=== PATIENT | female | born 1960 | race Hispanic/Latino ===

== ENCOUNTER 2018-04-29 09:10 | Outpatient (CLI) | payer MEDICARE, MEDICAID | END 2018-04-29 09:11 | disposition home or self-care (01) | LOC: BICULT 09:10 | PROVIDERS: ATTEND Internal Medicine Infectious Disease | DX: K76.89 Other specified diseases of liver (principal); Z90.49 Acquired absence of other specified parts of digestive tract | CPT/HCPCS: 76705 ==

== ENCOUNTER 2018-05-11 13:31 | Outpatient (CLI) | payer MEDICARE, MEDICAID | END 2018-05-11 13:32 | disposition home or self-care (01) | LOC: BICMAMMO 13:31 | PROVIDERS: ATTEND Internal Medicine | DX: Z12.31 Encounter for screening mammogram for malignant neoplasm of breast (principal) | CPT/HCPCS: 77063; 77067 ==

== ENCOUNTER 2018-12-14 07:11 | Outpatient (CLI) | payer MEDICARE, MEDICAID ==
--- NOTE | 2018-12-14 09:55 | CT ---
CT CHEST NONCONTRAST: HISTORY: The patient has a 46-year history of smoking. COMPARISON: Contrast enhanced CT chest from 03/13/2018. TECHNIQUE: Low dose CT scan. FINDINGS: There are some mild diffuse reticulonodular densities throughout both upper lobes, relatively less in the right middle and lower lobes. No distinct pulmonary parenchymal lesions seen otherwise. No kayleigh dence of masses or significant areas of scarring seen. No evidence of lymphadenopathy seen. No significant emphysematous changes seen. Extensive coronary artery calcifications seen. IMPRESSION: Lung-RADS category 1-Continue with annual screening low-dose CT in months. POS: [facility]
== END 2018-12-14 07:12 | disposition home or self-care (01) ==
LOC: CT 07:11
PROVIDERS: ATTEND Internal Medicine
DX: F17.210 Nicotine dependence, cigarettes, uncomplicated (principal)
CPT/HCPCS: G0297

== ENCOUNTER 2019-05-17 13:59 | Outpatient (CLI) | payer MEDICARE, MEDICAID ==
--- NOTE | 2019-05-17 14:40 | BD ---
DEXA BONE DENSITOMETRY: (Dual energy x-ray absorptiometry) DATE: 05/17/2019 HISTORY: 59-year old female for age-related, post-menopausal, osteoporosis screening. weight: 167 lbs height: 63 in. age of menopause: 45 COMPARISON: None available. FINDINGS: The bone mineral density (BMD) is given in grams per square centimeter (g/cm2): LUMBAR SPINE: BMD (g/cm^2) T score Z score L1: 0.957 -0.3 0.9 L2: 1.212 1.7 3.0 L3: 1.291 1.9 3.3 L4: 1.281 2.0 3.4 Total: 1.189 1.3 2.7 HIP: BMD (g/cm^2) T score Z score Femoral neck: 0.677 -1.5 -0.4 Total: 0.858 -0.7 0.1 FRAX WHO fracture risk assessment tool: 10 year fracture risk* Major osteoporotic fracture: 4.2 % Hip fracture: 0.3 % Reported risk factors: US (), neck BMD = 0.677 (g/cm^2), BMI = 29.6. *Fracture probability is calculated for an untreated patient. Fracture probability may be lower if th e patient has received treatment. IMPRESSION: 1.) The mean bone mineral density of the lumbar spine is normal. Fracture risk is not increased. 2) The bone mineral density of the femoral neck is osteopenic. Fracture risk is increased.
--- NOTE | 2019-05-17 15:10 | MMO ---
Bilateral MAMMO Bilat Screen DDI+CATIA. CLINICAL HISTORY: Patient is 59 years old and is seen for screening. The patient has no family history of breast cancer. The patient has no personal history of cancer. VIEWS: The views performed were: bilateral craniocaudal with tomosynthesis and bilateral mediolateral oblique with tomosynthesis. FILMS COMPARED: The present examination has been compared to prior imaging studies performed at [facility] on 04/05/2015, 04/10/2016, 04/13/2017 and 05/11/2018. MAMMOGRAM FINDINGS: There are scattered fibroglandular densities. Finding 1: There are stable benign appearing calcifications seen in both breasts. Finding 2: There are several stable focal asymmetries seen in both breasts. There are no suspicious masses, suspicious calcifications, or new areas of architectural distortion. IMPRESSION: THERE IS NO MAMMOGRAPHIC EVIDENCE OF MALIGNANCY. A ROUTINE FOLLOW-UP MAMMOGRAM IN 1 YEAR IS RECOMMENDED. THE RESULTS OF THIS EXAM WERE SENT TO THE PATIENT. ACR BI-RADS Category 2 - Benign finding MAMMOGRAPHY NOTE: 1. A negative mammogram report should not delay a biopsy if a dominant of clinically suspicious mass is present. 2. Approximately 10% to 15% of breast cancers are not detected by mammography. 3. Adenosis and dense breasts may obscure an underlying neoplasm.
== END 2019-05-17 14:00 | disposition home or self-care (01) ==
LOC: BICMAMMO 13:59
PROVIDERS: ATTEND Internal Medicine
DX: Z12.31 Encounter for screening mammogram for malignant neoplasm of breast (principal); Z13.820 Encounter for screening for osteoporosis; M85.859 Other specified disorders of bone density and structure, unspecified thigh
CPT/HCPCS: 77063; 77067; 77080

== ENCOUNTER 2019-06-05 09:28 | Emergency (ER) | payer MEDICARE, MEDICAID ==
[2019-06-05] MEDS ORDERED: Ketorolac Tromethamine 30 MG/ML VIAL ONE (09:55)
--- NOTE | 2019-06-05 10:30 | ULT ---
Left lower extremity venous Doppler ultrasound: 06/05/2019 COMPARISON: None HISTORY: Swelling, edema, assess for DVT TECHNIQUE: Multiplanar grayscale sonographic imaging of the venous structures of the left lower extre mity obtained with color flow and spectral analysis FINDINGS: Left common femoral vein, greater saphenous vein, profunda femoral vein, femoral vein, popl iteal vein, and posterior tibial vein are patent. Normal blood flow, augmentation, and compression within the deep venous system on the left. No evidence for deep venous thrombosis. IMPRESSION: No evidence for deep venous thrombosis of the left lower extremity.
--- NOTE | 2019-06-05 10:39 | RAD ---
;EFT AMLE 3 VIEWS: Date: 06/05/19 HISTORY: Swelling and pain left ankle. FINDINGS/IMPRESSION: Soft tissue swelling is present. The ankle mortise is maintained. No fracture, dislocation, or bony d estruction is seen. POS: [facility]
== END 2019-06-05 11:59 | disposition home or self-care (01) ==
LOC: ERS 09:28 → SJX 09:28 → ERS 11:59
DX: S93.402A Sprain of unspecified ligament of left ankle, initial encounter (principal); E11.9 Type 2 diabetes mellitus without complications; F31.9 Bipolar disorder, unspecified; F17.210 Nicotine dependence, cigarettes, uncomplicated; Z79.899 Other long term (current) drug therapy; Z79.84 Long term (current) use of oral hypoglycemic drugs; X58.XXXA Exposure to other specified factors, initial encounter
CPT/HCPCS: 96372; J1885

== ENCOUNTER 2020-01-30 13:07 | Observation (INO) | payer MEDICARE, MEDICAID ==
--- NOTE | 2020-01-30 14:38 | RAD ---
Exam: Chest one view HISTORY:Intermittent confusion, x2 months. Pain. Comparison: None FINDINGS: Cardiac silhouette: Normal Aorta: Unremarkable Pulmonary vessels: Normal Costophrenic angles: Clear LUNGS: No masses or consolidation. Pneumothorax: None Osseous abnormalities: None IMPRESSION: No acute cardiopulmonary process.
[2020-01-30 14:51] LABS: #Eosinphils 0.4 thou/uL (0.0-0.7); #Monocytes 0.7 thou/uL (0.11-0.59); #Neutrophils 6.4 thou/uL (1.40-6.50); %Basophils 0.2 % (0.0-1.0); %Eosinophils 3.9 % (0.0-10.0); %Lymphocytes 20.7 % (21.0-51.0); %Monocytes 7.1 % (0.0-10.0); %Neutrophils 68.1 % (42.0-75.0); Hemoglobin 14.9 g/dL (12.0-16.0); Mean Corpuscular HGB CONC 32.9 g/dL (32.0-36.0); Mean Corpuscular Hemoglobin 34.9 pg (27.0-31.0); Mean Platelet Volume 8.3 fL (7.4-10.4); Platelet Count 173 thou/uL (130-400); RBC Distribution Width 11.5 % (11.5-14.5); Red Blood Cell (RBC) Count 4.26 mill/uL (4.20-5.40); White Blood Cell (WBC) Count 9.4 thou/uL (4.8-10.8)
[2020-01-30 15:08] LABS: MDiff Complete? YES; Macrocytosis SLIGHT = 6-15 cells (100X) (0-5/hpf); Platelet Morphology Comment Appears Adequate
[2020-01-30 15:22] LABS: ALT (SGPT) 13 U/L (8-55); AST (SGOT) 16 U/L (5-34); Albumin 4.6 g/dL (3.5-5.0); Alkaline Phosphatase 60 U/L (40-110); Anion Gap 13 mmol/L (10-20); BUN (Urea Nitrogen) 28 mg/dL (9.8-20.1); Bilirubin, Total 0.4 mg/dL (0.2-1.2); CK (CPK) 186 U/L (29-168); Calc. Creatinine Clearance 0 mL/min (70-130); Calcium 10.1 mg/dL (7.8-10.44); Carbon Dioxide 26 mmol/L (22-29); Chloride 101 mmol/L (98-107); Estimated GFR-MDRD 22; Globulin 2.9 g/dL (2.4-3.5); Glucose 251 mg/dL (70-105); Lipase 35 U/L (8-78); Potassium 4.3 mmol/L (3.5-5.1); Protein, Total 7.5 g/dL (6.0-8.3); Sodium 136 mmol/L (136-145)
--- NOTE | 2020-01-30 17:39 | CT ---
CT Abdomen Pelvis WO Con History: Abdominal pain. Confusion Comparison: None. Findings: Lung bases are clear. No pericardial effusion. Prior cholecystectomy. No nephroureterolithiasis or hydroureteronephrosis. No secondary evidence of a recently passed stone. The aortoiliac contour is nonaneurysmal. Noncontrast evaluation of the liver, spleen, pancreas are un remarkable. There is a mass in the left adrenal gland measuring 16 Hounsfield units likely an adenoma, measuring up to 3.7 cm in size. No dilated loops of large or small bowel. No free intraperitoneal gas or fluid. No acute osseous abno rmality. Large disc bulges throughout the lumbar spine. Impression: 1. No acute intrathoracic process within the abdomen or pelvis. 2. No evidence for bowel obstruction. 3. No nephroureterolithiasis or hydroureteronephrosis. No secondary evidence of a recently passed sto ne. 4. Large left adrenal mass likely an adenoma measuring up to 3.7 cm in size.
--- NOTE | 2020-01-30 18:00 | CT ---
CT OF BRAIN PERFORMED WITHOUT CONTRAST ENHANCEMENT: 01/30/20 HISTORY: Altered mental status. COMPARISON: 03/09/18 study. Generalized ventricular and sulcal prominence. There is no signs of intracerebral hemorrhage or extra -axial fluid collection. The mastoid air cells and visualized sinuses are clear. IMPRESSION: No acute intracranial abnormalities. POS: [facility]
[2020-01-30] MEDS ORDERED: Acetaminophen 325 MG TAB PO PRN (22:12)
[2020-01-30] MEDS ORDERED: Calcium Carbonate 500 MG ChewTAB PO PRN (22:12)
[2020-01-30] MEDS ORDERED: Dextrose 50% Abboject 50 ML SYRINGE SLOW IVP PRN (22:15)
[2020-01-30] MEDS ORDERED: HumaLOG 300 UNITS/3 ML VIAL SC PRN ×2 (22:15)
[2020-01-30] MEDS ORDERED: Dextrose 5% in Water 1,000 ML IV PRN (22:15)
[2020-01-30 22:35] VITALS: BMI 26.1
[2020-01-30] MEDS: Sodium Chloride 0.9% 1,000 ML IV SCH (23:25)
--- NOTE | 2020-01-31 00:30 | PDOC.HHP ---
Hospitalist HPI - History of Present Illness Abdominal pain, AMS History of Present Illness: PCP: Dr. Youngblood The patient is a 59/F with PMH significant for Bipolar, schizophrenia, and DMII that prestents to the ER for the above complaint. The patient reports that she has had generalized abdominal pain for the past 2 months, describes as aching, intermittent, exacerbated and relieved by nothing. Unchanged over past 2 months. Denies any vomiting or diarrhea or melena. Denies any dysuria or vaginal discharge. Denies any sob or chest pain. Her friend, Gonzalez, reports that she has been a little "confused" today, denies any known trauma/falls, fever or chills, denies any change to medication regimen. ED Course: VS stable EKG NSR [address] brain negative for acute intracranial process CT abdomen and pelvis + Left large adrenal mass CXR negative Trop negative CK 156 NH4 18 BUN 28 Creatinine 2.28 Given 1L NS Reports feeling much better after receiving IV fluids. Hospitalist ROS - Review of Systems Constitutional: denies: fever, chills, sweats, weakness, malaise, other Eyes: denies: pain, vision change, conjunctivae inflammation, eyelid inflammation, redness, other ENT: denies: ear pain, ear discharge, nose pain, nose discharge, nose congestion , mouth pain, mouth swelling, throat pain, throat swelling, other Respiratory: denies: cough, dry, shortness of breath, hemoptysis, SOB with excertion, pleuritic pain, sputum, wheezing, other Cardiovascular: denies: chest pain, palpitations, orthopnea, paroxysmal noc. dyspnea, edema, light headedness, other Gastrointestinal: reports: abdominal pain. denies: nausea, vomiting, diarrhea, melena Genitourinary: denies: dysuria, frequency, incontinence, hematuria, retention, other Skin: denies: rash, lesions Neurological: reports: confusion. denies: weakness, change in speech - Medication Medications: Active Medications Generic Name Dose Route Start Last Admin Trade Name Freq PRN Reason Stop Dose Admin Sodium Chloride 1,000 mls @ 100 mls/hr 01/30/20 20:45 01/30/20 23:25 Normal Saline 0.9% IV 1,000 mls .Q10H LUZ Administration Hospitalist History - Past Medical History Source: patient, other (friend, Gonzalez) Psych: reports: Bipolar, Schizophrenia Endocrine: reports: Diabetes - Past Surgical History Past Surgical History: reports: Cholecystectomy, Other (right shoulder) - Family History Family History: reports: no pertinent history - Social History Smoking Status: Current every day smoker (1.5 ppd) Tobacco Type: cigarettes Alcohol: reports: None Drugs: reports: none Activity level: independent ambulation - Exam General - other findings: poor historian Eye: anicteric sclera ENT: normocephalic atraumatic Neck: supple, no thyromegaly, no lymphadenopathy Heart: RRR, no murmur, no gallops, no rubs, normal peripheral pulses Respiratory: CTAB, no wheezes, no rales, no ronchi Gastrointestinal: soft, non-tender, non-distended, normal bowel sounds, no guarding, no rigidity Extremities: no cyanosis, no edema Neurological: cranial nerve grossly intact, no focal deficits Psychiatric: normal affect, A&O x 3 Hospitalist Results - Labs Result Diagrams: 01/30/20 14:36 01/30/20 14:36 Lab results: WBC 9.4 thou/uL (4.8-10.8) 01/30/20 14:36 Hgb 14.9 g/dL (12.0-16.0) 01/30/20 14:36 Hct 45.2 % (36.0-47.0) 01/30/20 14:36 MCV 106.0 fL (78.0-98.0) H 01/30/20 14:36 Plt Count 173 thou/uL (130-400) 01/30/20 14:36 Neutrophils % 68.1 % (42.0-75.0) 01/30/20 14:36 Sodium 136 mmol/L (136-145) 01/30/20 14:36 Potassium 4.3 mmol/L (3.5-5.1) 01/30/20 14:36 Chloride 101 mmol/L (98-107) 01/30/20 14:36 Carbon Dioxide 26 mmol/L (22-29) 01/30/20 14:36 BUN 28 mg/dL (9.8-20.1) H 01/30/20 14:36 Creatinine 2.28 mg/dL (0.6-1.1) H 01/30/20 14:36 Glucose 251 mg/dL (70-105) H 01/30/20 14:36 Calcium 10.1 mg/dL (7.8-10.44) 01/30/20 14:36 Total Bilirubin 0.4 mg/dL (0.2-1.2) 01/30/20 14:36 AST 16 U/L (5-34) 01/30/20 14:36 ALT 13 U/L (8-55) 01/30/20 14:36 Alkaline Phosphatase 60 U/L (40-110) 01/30/20 14:36 Ammonia 18 umol/L (18-72) 01/30/20 17:38 Creatine Kinase 186 U/L (29-168) H 01/30/20 14:36 Troponin I Less than 0.010 ng/mL (< 0.028) 01/30/20 14:36 Serum Total Protein 7.5 g/dL (6.0-8.3) 01/30/20 14:36 Albumin 4.6 g/dL (3.5-5.0) 01/30/20 14:36 Lipase 35 U/L (8-78) 01/30/20 14:36 - EKG Interpretation EKG: NSR - Radiology Interpretation Chest x-ray Status: report reviewed by me CT scan - abdomen Status: report reviewed by me CT scan - head Status: report reviewed by me Hospitalist H&P A/P - Problem (1) AMS (altered mental status) Code(s): R41.82 - ALTERED MENTAL STATUS, UNSPECIFIED Status: Acute Assessment and Plan: Admit to medical floor, observation status Currently alert and oriented to person place and time likely secondary to dehydration IVF hydration Get UA Recheck BMP in am (2) ZAINAB (acute kidney injury) Code(s): N17.9 - ACUTE KIDNEY FAILURE, UNSPECIFIED Status: Acute Assessment and Plan: IVF hydration Recheck BMP in am (3) Diabetes mellitus, type II Status: Chronic Assessment and Plan: Mild sliding scale AC/HS accuchecks Restart home meds when reconciled. (4) Tobacco abuse Code(s): Z72.0 - TOBACCO USE Status: Acute Assessment and Plan: smokes 1.5 ppd Will educate smoking cessation
[2020-01-31 01:07] LABS: Bacteria/HPF None Seen HPF (None Seen); Bilirubin Negative (Negative); Blood, Urine Negative (Negative); Clarity Clear (Clear); Glucose, Urine (Dipstick) 30 mg/dL (Negative); Leukocyte 75 Leu/uL (Negative); Nitrite Negative (Negative); Protein, Urine (Dipstick) Negative (Neg-Trace); RBC/HPF 0-3 HPF (0-3); Squamous Epithelial None Seen HPF (0-3); Urobilinogen Normal mg/dL (Less than 2)
[2020-01-31 06:12] LABS: #Eosinphils 0.3 thou/uL (0.0-0.7); #Lymphocytes 2.7 thou/uL (1.20-3.40); #Monocytes 0.6 thou/uL (0.11-0.59); %Basophils 0.4 % (0.0-1.0); %Eosinophils 5.2 % (0.0-10.0); %Lymphocytes 39.9 % (21.0-51.0); %Monocytes 9.4 % (0.0-10.0); %Neutrophils 45.1 % (42.0-75.0); Mean Corpuscular HGB CONC 33.8 g/dL (32.0-36.0); Mean Corpuscular Hemoglobin 35.5 pg (27.0-31.0); Mean Platelet Volume 8.5 fL (7.4-10.4); Platelet Count 148 thou/uL (130-400); RBC Distribution Width 11.6 % (11.5-14.5); Red Blood Cell (RBC) Count 3.94 mill/uL (4.20-5.40); White Blood Cell (WBC) Count 6.7 thou/uL (4.8-10.8)
[2020-01-31 06:32] LABS: Anion Gap 12 mmol/L (10-20); BUN (Urea Nitrogen) 23 mg/dL (9.8-20.1); Calc. Creatinine Clearance 40 mL/min (70-130); Calcium 9.3 mg/dL (7.8-10.44); Carbon Dioxide 24 mmol/L (22-29); Chloride 105 mmol/L (98-107); Estimated GFR-MDRD 33; Glucose 186 mg/dL (70-105); Sodium 137 mmol/L (136-145)
[2020-01-31] MEDS: Sodium Chloride 0.9% 1,000 ML IV SCH ×3 (06:52→20:02)
[2020-01-31] MEDS: Famotidine 20 MG TAB PO SCH (08:19)
[2020-01-31] MEDS: cefTRIAXone\\ROCEPHIN 1 GM in Sodium Chloride 0.9% 100 ML IVPB SCH (12:15)
[2020-01-31] MEDS ORDERED: Nicotine 14 MG PATCH TD PRN (12:56)
--- NOTE | 2020-01-31 19:05 | PDOC.HOSPP ---
- Subjective Encounter Date: 01/31/20 Encounter Time: 09:30 Subjective: Patient seen and examined for AMS/ZAINAB. Mentation improving. No fever/chills. No new complaints. No overnight events - Objective Vital Signs & Weight: Vital Signs (12 hours) Temp Pulse Resp BP BP Pulse Ox 01/31/20 16:00 98.3 F 70 18 141/69 H 97 01/31/20 11:53 98.1 F 68 18 110/70 95 01/31/20 08:00 97.9 F 66 18 156/80 H 97 Weight Admit Weight 147 lb 7.828 oz Weight 147 lb 7.828 oz I&O: 01/30/20 01/31/20 02/01/20 06:59 06:59 06:59 Intake Total 1050 400 Balance 1050 400 Result Diagrams: 01/31/20 05:55 01/31/20 05:55 Additional Labs: Accuchecks 01/31/20 01/31/20 01/31/20 16:01 11:56 03:57 POC Glucose 161 H 144 H 281 H 01/31/20 00:02 POC Glucose 107 Laboratory Tests 01/30/20 01/31/20 14:36 00:55 Creatinine 2.28 H Ur Leukocyte Esterase 75 A Urine WBC 4-6 A Radiology Reviewed by me: Yes (CT abd - adrenal mass) Hospitalist ROS - Review of Systems Cardiovascular: denies: chest pain, palpitations, orthopnea, paroxysmal noc. dyspnea, edema, light headedness, other Gastrointestinal: denies: nausea, vomiting, abdominal pain, diarrhea, constipation, melena, hematochezia, other - Medication Medications: Active Medications Generic Name Dose Route Start Last Admin Trade Name Freq PRN Reason Stop Dose Admin Famotidine 20 mg 01/31/20 09:00 01/31/20 08:19 Pepcid PO 20 mg DAILY LUZ Administration Sodium Chloride 1,000 mls @ 125 mls/hr 01/31/20 11:20 01/31/20 12:15 Normal Saline 0.9% IV 1,000 mls .Q8H LUZ Administration Ceftriaxone Sodium 1 gm/ 100 mls @ 200 mls/hr 01/31/20 12:00 01/31/20 12:15 Sodium Chloride IVPB 100 mls Q24HR LUZ Administration Insulin Human Lispro 0 units 01/30/20 22:15 03/11/20 05:54 Humalog SC 4 unit .MILD SLIDING SCALE PRN Administration Mild Correctional Scale Nicotine 14 mg 01/31/20 12:56 01/31/20 13:22 Nicoderm Patch TD 14 mg Q24H PRN Administration Smoking craving - Exam General Appearance: NAD Heart: RRR, no murmur, no gallops, no rubs Respiratory: no wheezes, no rales, no ronchi, normal chest expansion Gastrointestinal: non-tender, non-distended, normal bowel sounds, no guarding, no rigidity Extremities: no cyanosis, no clubbing Neurological: no new deficit Psychiatric: normal affect, A&O x 3 Psychiatric - other findings: intermittern confusion Hosp A/P - Plan DVT proph w/SCDs Toxic Metabolic Encephalopathy UTI ZAINAB on CKD 2 DM2 Tobacco dep Left adrenal mass - prob adenoma - PCP to follow Macrocytosis PLAN: Cont IVF IV Ceftriaxone for UTI No hydronephrosis Cont sliding scale AM labs Cont other meds Check Vit B12 and Folic acid Check urine drug screen Verify home meds
[2020-01-31 20:12] LABS: Medtox Reader # READER 4
[2020-01-31 20:13] LABS: Amphetamine Not Detected (NotDetected); Barbiturates Screen Not Detected (NotDetected); Benzodiazepine Screen Not Detected (NotDetected); Cocaine Metabolite Screen Detected (NotDetected); Medtox Control Line Valid? VALID (VALID); Methadone Not Detected (NotDetected); Methamphetamine Not Detected (NotDetected); Opiate Screen Not Detected (NotDetected); Oxycodone Screen Not Detected (NotDetected); Phencyclidine (PCP) Not Detected (NotDetected); THC/Cannabinoid Screen Detected (NotDetected); Tricyclic Screen Not Detected (NotDetected)
[2020-01-31] MEDS ORDERED: Saccharomyces boulardii 250 MG CAP PO SCH (21:00)
[2020-02-01] MEDS: Sodium Chloride 0.9% 1,000 ML IV SCH (05:04)
[2020-02-01 06:37] LABS: Anion Gap 13 mmol/L (10-20); BUN (Urea Nitrogen) 16 mg/dL (9.8-20.1); Calc. Creatinine Clearance 53 mL/min (70-130); Calcium 8.9 mg/dL (7.8-10.44); Carbon Dioxide 18 mmol/L (22-29); Chloride 115 mmol/L (98-107); Estimated GFR-MDRD 46; Glucose 97 mg/dL (70-105); Magnesium 1.4 mg/dL (1.6-2.6); Potassium 3.8 mmol/L (3.5-5.1); Sodium 142 mmol/L (136-145)
[2020-02-01] MEDS: Famotidine 20 MG TAB PO SCH (08:30)
[2020-02-01] MEDS ORDERED: Sodium Chloride 0.45% 1,000 ML IV SCH (08:45)
[2020-02-01] MEDS ORDERED: Magnesium Sulfate 4 GM in Sodium Chloride 0.9% 250 ML 250 ML IVPB SCH (08:45)
[2020-02-01] MEDS ORDERED: Folic Acid 1 MG TAB PO SCH (09:00)
[2020-02-01] MEDS ORDERED: Multivit, Therapeutic 1 TAB PO SCH (09:00)
[2020-02-01] MEDS ORDERED: Cyanocobalamin (Vitamin B-12) 1,000 MCG TAB PO SCH (09:00)
[2020-02-01] MEDS: cefTRIAXone\\ROCEPHIN 1 GM in Sodium Chloride 0.9% 100 ML IVPB SCH (12:46)
[2020-02-01 16:33] VITALS: BP 147/89; TEMP 97.9
[2020-02-01] MEDS ORDERED: OLANZapine 5 MG TAB PO SCH (21:00)
[2020-02-01] MEDS ORDERED: traZODone HCl 50 MG TAB PO SCH (21:00)
--- NOTE | 2020-02-02 08:44 | DIS ---
DATE OF ADMISSION: 01/30/2020 DATE OF DISCHARGE: 02/01/2020 DISCHARGE DISPOSITION: Home. FOLLOWUP: Follow up with primary care physician, Dr. Mariza Roblero in 1 week. HISTORY: The patient was seen and examined on the day of discharge. Mentation has significantly improved. The patient is ambulating in the hallway. PHYSICAL EXAMINATION: VITAL SIGNS: On the day of discharge show temperature 97.8, pulse rate of 69, respirations 18, blood pressure of 136/63 with O2 saturation 97% on room air. BRIEF HOSPITAL COURSE: The patient is a 59-year-old female with diabetes mellitus type 2, schizophrenia, and bipolar disorder, presented to the emergency room on January 30, 2020, with altered mentation. She was found to have acute kidney injury with a creatinine of 2.28 on admission. Baseline creatinine in the past has been close to 1. Urine drug screen was positive for cocaine and cannabinoid. She was cocaine positive in 2015 as well. Her renal function improved with IV hydration. Her magnesium level was 1.4, which was replaced. Vitamin B12 was 1653 and folic acid was 18.2. Urinalysis on admission showed 4 to 6 wbc's without any bacteria. However, the urine cultures have been negative at 36 hours. Antibiotics were initially started on admission. This will be discontinued at discharge. The patient was found to have a large left adrenal mass, most likely adenoma measuring up to 3.[address] scan without contrast. Further workup is recommended as outpatient. Primary care physician advised to follow. FINAL DIAGNOSES: 1. Toxic metabolic encephalopathy, multifactorial. 2. Cocaine and cannabis abuse. 3. Acute kidney injury on chronic kidney disease, stage 2. 4. Diabetes mellitus, type 2. 5. Tobacco dependence. 6. Left adrenal mass, probably adenoma. Primary care physician advised to follow. 7. Macrocytosis. Vitamin B12 and folic acid were normal. 8. Metabolic acidosis secondary to renal failure. DISCHARGE MEDICATIONS: The patient was advised to avoid nephrotoxic agents. She was started on multivitamin along with Slow-Mag 64 mg twice a day. DISCHARGE INSTRUCTIONS: Repeat basic metabolic profile after 1 week is recommended. Primary care physician advised to follow. The patient understands the above plan of care. Job ID: [id number]
== END 2020-02-01 17:10 | disposition home or self-care (01) ==
LOC: ERS 13:07 → T4-B 20:31
PROVIDERS: ADMIT Internal Medicine; ATTEND Internal Medicine
DX: G92 Toxic encephalopathy (principal); E11.22 Type 2 diabetes mellitus with diabetic chronic kidney disease; N18.2 Chronic kidney disease, stage 2 (mild); N17.9 Acute kidney failure, unspecified; F12.10 Cannabis abuse, uncomplicated; F14.10 Cocaine abuse, uncomplicated; N39.0 Urinary tract infection, site not specified; E27.8 Other specified disorders of adrenal gland; D75.89 Other specified diseases of blood and blood-forming organs; R10.84 Generalized abdominal pain; F31.9 Bipolar disorder, unspecified; F20.9 Schizophrenia, unspecified; E87.2 Acidosis; F17.210 Nicotine dependence, cigarettes, uncomplicated; Z79.82 Long term (current) use of aspirin; Z79.84 Long term (current) use of oral hypoglycemic drugs; Z79.899 Other long term (current) drug therapy
CPT/HCPCS: 70450; 71045; 74176; 80048 ×2; 80053; 80306; 82140; 82550; 82607; 82746; 82962 ×3; 83690; 83735; 84484; 85025 ×2; 87086; 93005; 96361 ×4; 96365; 96366; 96367; 97139 ×2; 99285; G0378 ×4; 36415; 36416; 81003; 81015; 96360; J0696; J3475; J3490; J7050

== ENCOUNTER 2020-05-31 13:54 | Outpatient (CLI) | payer MEDICARE, MEDICAID ==
--- NOTE | 2020-05-31 16:10 | MMO ---
Bilateral MAMMO Bilat Screen DDI+CATIA. CLINICAL HISTORY: Patient is 60 years old and is seen for screening. The patient has no family history of breast cancer. The patient has no personal history of cancer. VIEWS: The views performed were: bilateral craniocaudal with tomosynthesis and bilateral mediolateral oblique with tomosynthesis. FILMS COMPARED: The present examination has been compared to prior imaging studies performed at [facility] on 04/10/2016, 04/13/2017, 05/11/2018 and 05/17/2019. This study has been interpreted with the assistance of computer-aided detection. MAMMOGRAM FINDINGS: There are scattered fibroglandular densities. Benign calcifications are noted bilaterally. There are no suspicious masses, suspicious calcifications, or new areas of architectural distortion. IMPRESSION: THERE IS NO MAMMOGRAPHIC EVIDENCE OF MALIGNANCY. A ROUTINE FOLLOW-UP MAMMOGRAM IN 1 YEAR IS RECOMMENDED. THE RESULTS OF THIS EXAM WERE SENT TO THE PATIENT. ACR BI-RADS Category 2 - Benign finding MAMMOGRAPHY NOTE: 1. A negative mammogram report should not delay a biopsy if a dominant of clinically suspicious mass is present. 2. Approximately 10% to 15% of breast cancers are not detected by mammography. 3. Adenosis and dense breasts may obscure an underlying neoplasm. Reported by: TRUDY OLIVEIRA MD Electonically Signed: [id number]
== END 2020-05-31 13:55 | disposition home or self-care (01) ==
LOC: BICMAMMO 13:54
PROVIDERS: ATTEND Internal Medicine
DX: Z12.31 Encounter for screening mammogram for malignant neoplasm of breast (principal)
CPT/HCPCS: 77063; 77067

== ENCOUNTER 2021-05-15 12:30 | Outpatient (CLI) | payer MEDICARE, MEDICAID | END 2021-05-15 12:31 | disposition home or self-care (01) | LOC: ULT 12:30 | PROVIDERS: ATTEND Internal Medicine | DX: R60.0 Localized edema (principal) ==

== ENCOUNTER 2021-08-08 14:50 | Emergency (ER) | payer MEDICARE, MEDICAID ==
[2021-08-08 22:17] LABS: Red Blood Cell (RBC) Count 3.94 mill/uL (4.20-5.40); White Blood Cell (WBC) Count 9.7 thou/uL (4.8-10.8)
[2021-08-08 22:18] LABS: #Eosinphils 0.5 thou/uL (0.0-0.7); #Monocytes 0.6 thou/uL (0.11-0.59); #Neutrophils 6.5 thou/uL (1.40-6.50); %Basophils 0.1 % (0.0-1.0); %Eosinophils 5.5 % (0.0-10.0); %Lymphocytes 20.6 % (21.0-51.0); %Monocytes 6.4 % (0.0-10.0); %Neutrophils 67.5 % (42.0-75.0); Anion Gap 18 mmol/L (10-20); Carbon Dioxide 19 mmol/L (23-31); Chloride 106 mmol/L (98-107); Mean Corpuscular HGB CONC 32.4 g/dL (32.0-36.0); Mean Corpuscular Hemoglobin 33.1 pg (27.0-31.0); Mean Platelet Volume 7.3 fL (7.4-10.4); Platelet Count 290 thou/uL (130-400); Potassium 4.2 mmol/L (3.5-5.1); RBC Distribution Width 11.6 % (11.5-14.5); Sodium 139 mmol/L (136-145)
[2021-08-08 22:19] LABS: ALT (SGPT) 56 U/L (8-55); AST (SGOT) 35 U/L (5-34); Albumin 4.4 g/dL (3.4-4.8); Alkaline Phosphatase 68 U/L (40-110); BUN (Urea Nitrogen) 22 mg/dL (9.8-20.1); Bilirubin, Total 0.3 mg/dL (0.2-1.2); Calc. Creatinine Clearance 0 mL/min (70-130); Calcium 9.7 mg/dL (7.8-10.44); Globulin 2.7 g/dL (2.4-3.5); Glucose 233 mg/dL (80-115); Protein, Total 7.1 g/dL (5.8-8.1)
[2021-08-08 22:20] LABS: Troponin I Less than 0.010 ng/mL (< 0.028)
[2021-08-09] MEDS ORDERED: HYDROcodone/Acetaminophen 5/325 mg Tablet ONE (16:00)
== END 2021-08-09 12:37 | disposition left against medical advice (07) ==
LOC: ERS 14:50
DX: Z53.21 Procedure and treatment not carried out due to patient leaving prior to being seen by health care provider (principal)
CPT/HCPCS: 80053; 84484; 85025; 93005

== ENCOUNTER 2021-08-09 13:45 | Emergency (ER) | payer MEDICARE, MEDICAID ==
[2021-08-09 14:36] LABS: #Eosinphils 0.2 thou/uL (0.0-0.7); #Lymphocytes 1.9 thou/uL (1.20-3.40); #Monocytes 0.5 thou/uL (0.11-0.59); #Neutrophils 8.1 thou/uL (1.40-6.50); %Basophils 0.1 % (0.0-1.0); %Lymphocytes 17.5 % (21.0-51.0); %Neutrophils 75.5 % (42.0-75.0); Hemoglobin 13.1 g/dL (12.0-16.0); Mean Corpuscular HGB CONC 33.1 g/dL (32.0-36.0); Mean Corpuscular Hemoglobin 33.9 pg (27.0-31.0); Mean Platelet Volume 6.7 fL (7.4-10.4); Platelet Count 305 thou/uL (130-400); RBC Distribution Width 11.7 % (11.5-14.5); Red Blood Cell (RBC) Count 3.86 mill/uL (4.20-5.40); White Blood Cell (WBC) Count 10.8 thou/uL (4.8-10.8)
[2021-08-09 15:01] LABS: ALT (SGPT) 41 U/L (8-55); AST (SGOT) 24 U/L (5-34); Albumin 4.2 g/dL (3.4-4.8); Alkaline Phosphatase 63 U/L (40-110); Anion Gap 17 mmol/L (10-20); BUN (Urea Nitrogen) 17 mg/dL (9.8-20.1); Bilirubin, Total 0.5 mg/dL (0.2-1.2); Calc. Creatinine Clearance 0 mL/min (70-130); Calcium 9.9 mg/dL (7.8-10.44); Carbon Dioxide 20 mmol/L (23-31); Chloride 100 mmol/L (98-107); Globulin 2.6 g/dL (2.4-3.5); Glucose 374 mg/dL (80-115); Lipase 48 U/L (8-78); Potassium 3.8 mmol/L (3.5-5.1); Protein, Total 6.8 g/dL (5.8-8.1); Sodium 133 mmol/L (136-145)
== END 2021-08-09 18:18 | disposition home or self-care (01) ==
LOC: ERS 13:45
DX: R20.2 Paresthesia of skin (principal); R07.89 Other chest pain; I10 Essential (primary) hypertension; E11.9 Type 2 diabetes mellitus without complications; F17.210 Nicotine dependence, cigarettes, uncomplicated
CPT/HCPCS: 36415; 71045; 80053; 83690; 84484; 85025; 93005

== ENCOUNTER 2021-08-27 11:18 | Outpatient (CLI) | payer MEDICARE, MEDICAID | END 2021-08-27 11:19 | disposition home or self-care (01) | LOC: SCSMRI 11:18 → BICCT 11:19 | PROVIDERS: ATTEND Internal Medicine | DX: Z12.2 Encounter for screening for malignant neoplasm of respiratory organs (principal); F17.210 Nicotine dependence, cigarettes, uncomplicated; M54.12 Radiculopathy, cervical region | CPT/HCPCS: 71271; 72141 ==

== ENCOUNTER 2022-06-23 12:58 | Outpatient (CLI) | payer OTHER, MEDICAID | END 2022-06-23 12:59 | disposition home or self-care (01) | LOC: BICMAMMO 12:58 | PROVIDERS: ATTEND Internal Medicine | DX: Z12.31 Encounter for screening mammogram for malignant neoplasm of breast (principal) | CPT/HCPCS: 77063; 77067 ==

== ENCOUNTER 2023-03-19 13:08 | Outpatient (CLI) | payer OTHER, MEDICAID | END 2023-03-19 13:09 | disposition home or self-care (01) | LOC: TBSIIMAG 13:08 | PROVIDERS: ATTEND Psychiatry & Neurology Neurology | DX: R41.3 Other amnesia (principal) | CPT/HCPCS: 70551 ==

== ENCOUNTER 2023-07-15 13:36 | Outpatient (CLI) | payer OTHER, MEDICAID | END 2023-07-15 13:37 | disposition home or self-care (01) | LOC: BICMAMMO 13:36 | PROVIDERS: ATTEND Student in an Organized Health Care Education/Training Program | DX: Z12.31 Encounter for screening mammogram for malignant neoplasm of breast (principal) | CPT/HCPCS: 77063; 77067 ==

== ENCOUNTER 2023-12-12 10:00 | Emergency (ER) | payer OTHER, MEDICARE ==
[2023-12-12] MEDS ORDERED: Haloperidol 1 MG TAB ONE (10:41)
[2023-12-12 10:59] LABS: Bilirubin Negative (Negative); Blood, Urine Negative (Negative); CAUTI Indications for Culture Alt mental st,lethar; Clarity Turbid (Clear); Glucose, Urine (Dipstick) 500 mg/dL (Negative); Ketone, Urine Negative (Negative); Leukocyte 500 Leu/uL (Negative); Nitrite 1+ (Negative); Protein, Urine (Dipstick) Negative (Neg-Trace); RBC/HPF 0-3 HPF (0-3); Squamous Epithelial None Seen HPF (0-3); Urobilinogen Normal mg/dL (Less than 2); WBC/HPF Greater than 50 HPF (0-3)
[2023-12-12 11:03] LABS: Amphetamine Not Detected (NotDetected); Barbiturates Screen Not Detected (NotDetected); Benzodiazepine Screen Detected (NotDetected); Cocaine Metabolite Screen Not Detected (NotDetected); Methadone Not Detected (NotDetected); Methamphetamine Not Detected (NotDetected); Opiate Screen Not Detected (NotDetected); Oxycodone Screen Not Detected (NotDetected); Phencyclidine (PCP) Not Detected (NotDetected); THC/Cannabinoid Screen Not Detected (NotDetected); Tricyclic Screen Not Detected (NotDetected)
[2023-12-12 11:05] LABS: Bacteria/HPF 3+ HPF (None Seen)
[2023-12-12 11:07] LABS: Urine Culture Reflex Yes Yes
[2023-12-12 11:21] LABS: #Eosinphils 0.2 thou/uL (0.0-0.7); #Monocytes 0.5 thou/uL (0.11-0.59); #Neutrophils 5.1 thou/uL (1.40-6.50); %Basophils 0.5 % (0.0-1.0); %Eosinophils 2.8 % (0.0-10.0); %Lymphocytes 25.3 % (21.0-51.0); %Monocytes 6.5 % (0.0-10.0); %Neutrophils 64.8 % (42.0-75.0); Hematocrit 35.8 % (36.0-47.0); Hemoglobin 11.7 g/dL (12.0-16.0); Mean Corpuscular HGB CONC 32.7 g/dL (32.0-36.0); Mean Corpuscular Hemoglobin 32.4 pg (27.0-31.0); Mean Corpuscular Volume 99.2 fl (78.0-98.0); Mean Platelet Volume 9.1 fL (7.4-10.4); Platelet Count 371 10x3/uL (130-400); RBC Distribution Width 13.1 % (11.5-14.5); Red Blood Cell (RBC) Count 3.61 mill/uL (4.20-5.40); White Blood Cell (WBC) Count 7.8 10x3/uL (4.8-10.8)
[2023-12-12] MEDS ORDERED: OLANZapine 5 MG TAB ONE (11:29)
[2023-12-12] MEDS ORDERED: risperiDONE 1 MG TAB ONE (11:30)
[2023-12-12] MEDS ORDERED: cefTRIAXone (ROCEPHIN) 1 GM VIAL ONE (11:30)
[2023-12-12] MEDS ORDERED: Sodium Chloride 0.9% 100 ML ONE (11:30)
[2023-12-12 11:37] LABS: BHCG - Serum Negative (NEGATIVE); Pregs Control Background? CLEAR/WHITE (CLR/WHITE); Pregs Control Bar Appear? YES (CONTROL BAR)
[2023-12-12 11:44] LABS: Acetaminophen Less than 10 mcg/mL (10.0-30.0); Alcohol Less than 10.0 mg/dL (Less than 10); Salicylate Less than 8.0 mg/dL (15.0-30.0)
[2023-12-12 11:45] LABS: ALT (SGPT) 12 U/L (8-55); AST (SGOT) 15 U/L (5-34); Albumin 3.9 g/dL (3.4-4.8); Alcohol Less than 10.0 mg/dL (Less than 10); Alkaline Phosphatase 71 U/L (40-110); Anion Gap 16 mmol/L (10-20); BUN (Urea Nitrogen) 15 mg/dL (9.8-20.1); Bilirubin, Total 0.4 mg/dL (0.2-1.2); Calc. Creatinine Clearance 0 mL/min (70-130); Calcium 9.5 mg/dL (7.8-10.44); Carbon Dioxide 23 mmol/L (23-31); Chloride 104 mmol/L (98-107); Estimated GFR 52; Globulin 3.3 g/dL (2.4-3.5); Glucose 216 mg/dL (80-115); Potassium 4.3 mmol/L (3.5-5.1); Protein, Total 7.2 g/dL (5.8-8.1); Sodium 139 mmol/L (136-145)
== END 2023-12-12 14:54 | disposition home or self-care (01) ==
LOC: ERS 10:00
DX: S09.90XA Unspecified injury of head, initial encounter (principal); N39.0 Urinary tract infection, site not specified; F30.9 Manic episode, unspecified; I10 Essential (primary) hypertension; E11.9 Type 2 diabetes mellitus without complications; X58.XXXA Exposure to other specified factors, initial encounter
CPT/HCPCS: 36415; 36416; 71045; 80053; 80306; 80307; 81001; 84443; 84703; 85025; 87040; 87077; 87086; 87186; 93005; 96365; J0696; J3490

== ENCOUNTER 2024-01-14 13:50 | Emergency (ER) | payer MEDICARE, OTHER | END 2024-01-14 16:19 | disposition home or self-care (01) | LOC: ERS 13:50 | DX: S92.425A Nondisplaced fracture of distal phalanx of left great toe, initial encounter for closed fracture (principal); S92.515A Nondisplaced fracture of proximal phalanx of left lesser toe(s), initial encounter for closed fracture; I10 Essential (primary) hypertension; F17.210 Nicotine dependence, cigarettes, uncomplicated; E11.9 Type 2 diabetes mellitus without complications; X58.XXXA Exposure to other specified factors, initial encounter | CPT/HCPCS: 28490 ==

== ENCOUNTER 2024-06-12 13:03 | Emergency (ER) | payer OTHER ==
[~2024-06-12 13:03] MED LIST: Iopamidol-370 76% 500 ML MDV (1 ML CHARGE) ONE
[2024-06-12 14:26] LABS: ALT (SGPT) 13 U/L (8-55); AST (SGOT) 18 U/L (5-34); Albumin 3.7 g/dL (3.4-4.8); Alkaline Phosphatase 73 U/L (40-110); Anion Gap 13 mmol/L (10-20); BUN (Urea Nitrogen) 19 mg/dL (9.8-20.1); Bilirubin, Total 0.2 mg/dL (0.2-1.2); Calc. Creatinine Clearance 0 mL/min (70-130); Carbon Dioxide 21 mmol/L (23-31); Chloride 107 mmol/L (98-107); Estimated GFR 36; Globulin 2.9 g/dL (2.4-3.5); Glucose 130 mg/dL (80-115); Lipase 24 U/L (8-78); Potassium 4.5 mmol/L (3.5-5.1); Protein, Total 6.6 g/dL (5.8-8.1); Sodium 136 mmol/L (136-145)
[2024-06-12 14:33] LABS: Bacteria/HPF None Seen HPF (None Seen); Bilirubin Negative (Negative); Blood, Urine Negative (Negative); CAUTI Indications for Culture Pelvic or flank pain; Clarity Clear (Clear); Glucose, Urine (Dipstick) Normal (Negative); Ketone, Urine Negative (Negative); Leukocyte 25 Leu/uL (Negative); Nitrite Negative (Negative); Protein, Urine (Dipstick) Negative (Neg-Trace); RBC/HPF 0-3 HPF (0-3); Squamous Epithelial None Seen HPF (0-3); Urobilinogen Normal mg/dL (Less than 2); WBC/HPF 0-3 HPF (0-3)
[2024-06-12 14:35] LABS: #Basophils 0.03 10x3/uL (0.0-0.2); %Basophils 0.6 % (0.0-1.0); %Eosinophils 10.2 % (0.0-10.0); %Lymphocytes 29.1 % (21.0-51.0); %Monocytes 8.1 % (0.0-10.0); %Neutrophils 51.8 % (42.0-75.0); Hematocrit 35.6 % (36.0-47.0); Hemoglobin 11.6 g/dL (12.0-16.0); Mean Corpuscular HGB CONC 32.6 g/dL (32.0-36.0); Mean Corpuscular Hemoglobin 33.4 pg (27.0-31.0); Mean Corpuscular Volume 102.6 fL (78.0-98.0); Mean Platelet Volume 9.1 fL (7.4-10.4); Platelet Count 267 10x3/uL (130-400); RBC Distribution Width 14.4 % (11.5-14.5); Red Blood Cell (RBC) Count 3.47 mill/uL (4.20-5.40)
[2024-06-12 14:42] LABS: Urine Culture Reflex No No
[2024-06-12] MEDS ORDERED: Dicyclomine 20 MG TAB ONE (15:36)
== END 2024-06-12 15:40 | disposition home or self-care (01) ==
LOC: ERS 13:03
DX: R10.32 Left lower quadrant pain (principal); R10.814 Left lower quadrant abdominal tenderness; I10 Essential (primary) hypertension; E11.9 Type 2 diabetes mellitus without complications; F17.210 Nicotine dependence, cigarettes, uncomplicated
CPT/HCPCS: 36415; 74177; 80053; 81001; 83690; 85025; Q9967

== ENCOUNTER 2024-08-10 02:29 | Emergency (ER) | payer OTHER | END 2024-08-10 03:51 | LOC: ERS 02:29 → EEVIPCON 02:29 → ERS 03:51 | DX: S09.90XA Unspecified injury of head, initial encounter (principal); E11.9 Type 2 diabetes mellitus without complications; I10 Essential (primary) hypertension; F17.210 Nicotine dependence, cigarettes, uncomplicated; W18.30XA Fall on same level, unspecified, initial encounter | CPT/HCPCS: 70450; 72125 ==

== ENCOUNTER 2024-12-04 19:16 | Emergency (ER) | payer OTHER ==
[2024-12-04 21:20] LABS: Actual Bicarbonate (HCO3v) 27.5 mEq/L (22-28); Base Excess 1.6 mEq/L (-2.0 to +3.0); Calcium, Ionized (venous) 1.21 mmol/L (1.16-1.32); Chloride (VBG) 94 mmol/L (98-106); Hematocrit-VBG 41 % (36.0-47.0); Hemoglobin (Hb) 13.9 g/dL (11.7-16.0); Sodium 131 mmol/L (133-146); pH (venous) 7.374 (7.32-7.43)
[2024-12-04 21:25] LABS: #Basophils Less than 0.03 10x3/uL (0.0-0.2); %Basophils 0.1 % (0.0-1.0); %Eosinophils 0.7 % (0.0-10.0); %Lymphocytes 15.3 % (21.0-51.0); %Monocytes 10.3 % (0.0-10.0); %Neutrophils 73.3 % (42.0-75.0); Hematocrit 38.4 % (36.0-47.0); Hemoglobin 13.2 g/dL (12.0-16.0); Mean Corpuscular HGB CONC 34.4 g/dL (32.0-36.0); Mean Corpuscular Volume 93.2 fL (78.0-98.0); Mean Platelet Volume 10.6 fL (7.4-10.4); Platelet Count 190 10x3/uL (130-400); Red Blood Cell (RBC) Count 4.12 mill/uL (4.20-5.40)
[2024-12-04 21:39] LABS: Phosphorus 2.8 mg/dL (2.3-4.7)
[2024-12-04 21:41] LABS: Magnesium 1.9 mg/dL (1.6-2.6)
[2024-12-04 21:46] LABS: Troponin I 0.011 ng/mL (< 0.028)
[2024-12-04 22:29] LABS: ALT (SGPT) 23 U/L (8-55); AST (SGOT) 18 U/L (5-34); Albumin 3.2 g/dL (3.4-4.8); Alkaline Phosphatase 78 U/L (40-110); Anion Gap 15 mmol/L (10-20); BUN (Urea Nitrogen) 37 mg/dL (9.8-20.1); Bilirubin, Total 0.3 mg/dL (0.2-1.2); Calcium 9.4 mg/dL (7.8-10.44); Carbon Dioxide 26 mmol/L (23-31); Chloride 95 mmol/L (98-107); Globulin 3.4 g/dL (2.4-3.5); Potassium 4.5 mmol/L (3.5-5.1); Protein, Total 6.6 g/dL (5.8-8.1); Sodium 131 mmol/L (136-145)
[2024-12-04 22:30] LABS: Glucose 717 mg/dL (80-115)
[2024-12-04 22:35] LABS: Bilirubin Negative (Negative); Blood, Urine Negative (Negative); Glucose, Urine (Dipstick) >=1000 mg/dL (Negative); Ketone, Urine Negative (Negative); Leukocyte Small (Negative); Nitrite Negative (Negative); Protein, Urine (Dipstick) Negative (Neg-Trace); Urobilinogen 0.2 mg/dL (Less than 2); pH, Urine 5.5 (5.0-9.0)
[2024-12-04 22:36] LABS: Clarity Clear (Clear)
[2024-12-04 22:37] LABS: Specific Gravity, Urine 1.016 (1.002-1.036)
[2024-12-04 22:40] LABS: Bacteria/HPF None Seen HPF (None Seen); CAUTI Indications for Culture Dysuria,urgency,freq; RBC/HPF None Seen HPF (0-3); Squamous Epithelial None Seen HPF (0-3); WBC/HPF None Seen HPF (0-3)
[2024-12-04 22:41] LABS: Urine Culture Reflex No No
[2024-12-04 23:03] LABS: Calc. Creatinine Clearance 0 mL/min (70-130); Estimated GFR 43
[2024-12-04] MEDS ORDERED: Insulin Regular, Human 100 UNIT/ML 10 ML VIAL ONE (23:08)
== END 2024-12-05 02:21 | disposition home or self-care (01) ==
LOC: ERS 19:16
DX: E11.65 Type 2 diabetes mellitus with hyperglycemia (principal); I10 Essential (primary) hypertension; F17.210 Nicotine dependence, cigarettes, uncomplicated; I25.10 Atherosclerotic heart disease of native coronary artery without angina pectoris; N18.32 Chronic kidney disease, stage 3b; F31.9 Bipolar disorder, unspecified; F19.11 Other psychoactive substance abuse, in remission; Z91.81 History of falling; Z79.4 Long term (current) use of insulin
CPT/HCPCS: 71045; 80061; 80164; 81001; 82010; 82043; 82607; 82805; 82962; 83036; 83735; 84100; 84484; 86706; 86780; 86803; 87340; 87389; 93005; 96360; 99285; J1815; 36415; 36416; 80053; 84443; 85025

== ENCOUNTER 2025-01-04 21:45 | Inpatient (IN) | payer OTHER ==
[2025-01-04] MEDS ORDERED: Haloperidol Lactate 5 MG/ML VIAL ONE (22:13)
[2025-01-04 22:58] LABS: Actual Bicarbonate (HCO3v) 23.7 mEq/L (22-28); Base Excess -3.5 mEq/L (-2.0 to +3.0); Calcium, Ionized (venous) 1.19 mmol/L (1.16-1.32); Chloride (VBG) 95 mmol/L (98-106); Hematocrit-VBG 39 % (36.0-47.0); Hemoglobin (Hb) 13.4 g/dL (11.7-16.0); Potassium (VBG) 4.19 mmol/L (3.70-5.30); Sodium 137 mmol/L (133-146); pH (venous) 7.279 (7.32-7.43)
[2025-01-04 23:00] LABS: #Basophils Less than 0.03 10x3/uL (0.0-0.2); #Eosinophils Less than 0.03 10x3/uL (0.0-0.7); %Lymphocytes 6.7 % (21.0-51.0); %Monocytes 5.1 % (0.0-10.0); Hematocrit 37.2 % (36.0-47.0); Hemoglobin 12.4 g/dL (12.0-16.0); Mean Corpuscular HGB CONC 33.3 g/dL (32.0-36.0); Mean Corpuscular Hemoglobin 32.5 pg (27.0-31.0); Mean Corpuscular Volume 97.6 fL (78.0-98.0); Mean Platelet Volume 10.1 fL (7.4-10.4); Platelet Count 206 10x3/uL (130-400); RBC Distribution Width 13.9 % (11.5-14.5); Red Blood Cell (RBC) Count 3.81 mill/uL (4.20-5.40)
[2025-01-04 23:20] LABS: ALT (SGPT) 23 U/L (Less than 34); AST (SGOT) 40 U/L (11-34); Albumin 3.3 g/dL (3.1-4.5); Alkaline Phosphatase 75 U/L (40-110); Anion Gap 19 mmol/L (10-20); BUN (Urea Nitrogen) 36 mg/dL (9.8-20.1); Bilirubin, Total 0.6 mg/dL (0.3-1.2); Calc. Creatinine Clearance 0 mL/min (70-130); Calcium 9.4 mg/dL (7.8-10.44); Carbon Dioxide 19 mmol/L (23-31); Chloride 101 mmol/L (98-107); Estimated GFR 55; Globulin 3.4 g/dL (2.4-3.5); Glucose 326 mg/dL (80-115); Potassium 4.1 mmol/L (3.5-5.1); Protein, Total 6.7 g/dL (5.8-8.1); Sodium 135 mmol/L (136-145)
[2025-01-04 23:21] LABS: Lipase 25 U/L (8-78); Magnesium 1.8 mg/dL (1.6-2.6)
[2025-01-04 23:22] LABS: Acetaminophen Less than 10 mcg/mL (Less than 10); Alcohol Less than 10.0 mg/dL (Less than 10); Salicylate Less than 8.0 mg/dL (Less than 8.0)
[2025-01-05] MEDS ORDERED: Haloperidol Lactate 5 MG/ML VIAL ONE (03:29)
[2025-01-05 05:47] LABS: Anion Gap 21 mmol/L (10-20); BUN (Urea Nitrogen) 35 mg/dL (9.8-20.1); CK (CPK) 531 U/L (29-168); Calc. Creatinine Clearance 0 mL/min (70-130); Calcium 8.7 mg/dL (7.8-10.44); Carbon Dioxide 21 mmol/L (23-31); Chloride 96 mmol/L (98-107); Estimated GFR 61; Glucose 468 mg/dL (80-115); Potassium 3.3 mmol/L (3.5-5.1); Sodium 135 mmol/L (136-145)
[2025-01-05] MEDS ORDERED: NS 0.9% w/ 20 MEQ KCL 1,000 ML ONE (06:11)
[2025-01-05] MEDS ORDERED: Insulin Lispro 100 UNIT/ML 10 ML VIAL ONE (06:17)
[2025-01-05] MEDS ORDERED: Dextrose 5% in Water 1,000 ML IV PRN (07:39)
[2025-01-05] MEDS ORDERED: Ondansetron PF 4 MG/2 ML Vial IVP PRN (07:39)
[2025-01-05] MEDS ORDERED: Dextrose 50% Abboject 50 ML SYRINGE SLOW IVP PRN (07:39)
[2025-01-05] MEDS ORDERED: Acetaminophen 325 MG TAB PO PRN (07:39)
[2025-01-05] MEDS ORDERED: Glucagon 1 MG/ML KIT IM PRN (07:39)
[2025-01-05 07:58] VITALS: BMI 19.6
[2025-01-05] MEDS: Insulin Regular, Human 100 UNIT/ML 10 ML VIAL SC PRN (09:09)
[2025-01-05] MEDS: Sodium Chloride 0.9% 1,000 ML IV SCH (09:09)
[2025-01-05] MEDS: Enoxaparin 40 MG (0.4 mL) SYRINGE SC SCH (09:10)
[2025-01-05] MEDS: Famotidine 20 MG TAB PO SCH (09:10)
[2025-01-05] MEDS: Famotidine/PF 20 mg/2ml Vial SLOW IVP SCH (09:17)
[2025-01-05] MEDS ORDERED: Haloperidol Lactate 5 MG/ML VIAL IM SCH (11:30)
[2025-01-05] MEDS: Divalproex Sodium DR 500 MG TAB PO SCH ×2 (11:40→20:08)
[2025-01-05] MEDS: Haloperidol Lactate 5 MG/ML VIAL IM SCH (11:43)
[2025-01-05 14:20] LABS: Anion Gap 15 mmol/L (10-20); BUN (Urea Nitrogen) 27 mg/dL (9.8-20.1); Calc. Creatinine Clearance 43 mL/min (70-130); Calcium 8.5 mg/dL (7.8-10.44); Carbon Dioxide 23 mmol/L (23-31); Chloride 106 mmol/L (98-107); Estimated GFR 59; Glucose 178 mg/dL (80-115); Potassium 3.7 mmol/L (3.5-5.1); Sodium 140 mmol/L (136-145)
[2025-01-05] MEDS ORDERED: Electrolyte Replacement Protocol 1 EACH FS SCH (17:17)
[2025-01-05] MEDS: traZODone HCl 50 MG TAB PO SCH (20:08)
[2025-01-05] MEDS: Lurasidone 20 MG TABLET PO SCH (20:11)
[2025-01-05] MEDS: Insulin Glargine 30 UNITS/0.3 ML VIAL SC SCH (21:31)
[2025-01-06 04:30] LABS: #Basophils Less than 0.03 10x3/uL (0.0-0.2); #Eosinophils Less than 0.03 10x3/uL (0.0-0.7); %Basophils 0.2 % (0.0-1.0); %Eosinophils 0.2 % (0.0-10.0); RBC Distribution Width 14.6 % (11.5-14.5)
[2025-01-06 04:43] LABS: %Lymphocytes 25.3 % (21.0-51.0); %Monocytes 8.7 % (0.0-10.0); %Neutrophils 65.4 % (42.0-75.0); Hematocrit 29.2 % (36.0-47.0); Hemoglobin 9.9 g/dL (12.0-16.0); Mean Corpuscular HGB CONC 33.9 g/dL (32.0-36.0); Mean Corpuscular Hemoglobin 33.1 pg (27.0-31.0); Mean Corpuscular Volume 97.7 fL (78.0-98.0); Platelet Count 181 10x3/uL (130-400); Red Blood Cell (RBC) Count 2.99 mill/uL (4.20-5.40)
[2025-01-06 04:52] LABS: Anion Gap 11 mmol/L (10-20); BUN (Urea Nitrogen) 29 mg/dL (9.8-20.1); Calc. Creatinine Clearance 36 mL/min (70-130); Carbon Dioxide 24 mmol/L (23-31); Chloride 107 mmol/L (98-107); Estimated GFR 48; Glucose 408 mg/dL (80-115); Magnesium 1.5 mg/dL (1.6-2.6); Potassium 4.2 mmol/L (3.5-5.1); Sodium 138 mmol/L (136-145)
[2025-01-06] MEDS: Sodium Chloride 0.9% 500 ML IV SCH (05:14)
[2025-01-06] MEDS: Magnesium 2 GM/50 ML(in water) 2 GM in Premix 1 BAG IVPB SCH (05:54)
[2025-01-06] MEDS: FLU (Fluarix Triv) TS24-25(6MOS UP)/PF 45 MCG/0.5 ML Syringe IM ONE (09:17)
[2025-01-06 14:28] VITALS: BMI 19.6
[2025-01-06] MEDS: Insulin Glargine 30 UNITS/0.3 ML VIAL SC SCH (20:14)
[2025-01-07] MEDS: Famotidine 20 MG TAB PO SCH (09:02)
[2025-01-07] MEDS: Famotidine/PF 20 mg/2ml Vial SLOW IVP SCH (09:09)
[2025-01-07 21:30] VITALS: BP 136/64; TEMP 98.2
== END 2025-01-07 19:55 | disposition home or self-care (01) | DRG 885 ==
LOC: ERS 21:45 → MSONC 01-05 05:57 → OBSVTOIN 01-07 08:38
PROVIDERS: ADMIT Internal Medicine; ATTEND Internal Medicine
DX: F25.0 Schizoaffective disorder, bipolar type (principal); N17.9 Acute kidney failure, unspecified; E11.649 Type 2 diabetes mellitus with hypoglycemia without coma; I10 Essential (primary) hypertension; K59.09 Other constipation; Z90.49 Acquired absence of other specified parts of digestive tract; Z91.148 Patient's other noncompliance with medication regimen for other reason; Z90.710 Acquired absence of both cervix and uterus
CPT/HCPCS: 36415; 36416; 70450; 71045; 80048; 80053; 80307; 82010; 82140; 82550; 82805; 83605; 83690; 83735; 85025; 93005; 96361; 96372; 96374; 96375; G0378; J1630; J1650; J1815; J3475; J3480; J7030

== ENCOUNTER 2025-09-26 10:54 | Outpatient (CLI) | payer OTHER | END 2025-09-26 10:55 | disposition home or self-care (01) | LOC: BICRAD 10:54 | PROVIDERS: ATTEND Family Medicine | DX: M54.50 Low back pain, unspecified (principal); M25.551 Pain in right hip; M41.9 Scoliosis, unspecified; M47.816 Spondylosis without myelopathy or radiculopathy, lumbar region; M47.817 Spondylosis without myelopathy or radiculopathy, lumbosacral region | CPT/HCPCS: 72100 ==